=== PATIENT | female | born 1980 | race Two or more races ===

== ENCOUNTER 2016-07-15 14:16 | Emergency (ER) | payer MEDICAID, OTHER ==
[~2016-07-15] VITALS: Ht 162.6 cm; Wt 72.6 kg
[2016-07-15 14:31] VITALS: BP 120/78
[2016-07-15 15:21] LABS: DEFINITIVE VIEW TRANSMISSION; Hemoglobin 9.9 g/dL (12.2-16.2); Mean Corpuscular Hemoglobin 19.9 pg (28.0-32.0); Mean Corpuscular Volume 63.9 fL (80.0-100.0); Mean Platelet Volume 8.9 fL (7.4-10.4); Platelet Count (auto) 282 10^3/uL (140-450); Red Cell Distribution Width 20.6 % (11.6-16.0); SUSPECT VIEW TRANSMISSION; White Blood Cell 6.8 10^3/uL (4.4-10.8)
[2016-07-15 15:22] LABS: Metamyelocytes % 0; Myelocytes % 0; Promyelocytes % 0; Reactive Lymphocytes 0
[2016-07-15 15:32] LABS: Albumin 3.4 g/dL (3.4-5.0); Anion Gap 10 (5-15); Aspartate Aminotransferase 17 U/L (15-37); Blood Urea Nitrogen 7 mg/dL (7-18); Calcium 7.8 mg/dL (8.5-10.1); Carbon Dioxide 25 mmol/L (21-32); Chloride 104 mmol/L (98-107); GFR African American 180 mL/min; GFR Non-African American 148 mL/min; Glucose 96 mg/dL (74-106); Sodium 139 mmol/L (136-145)
[2016-07-15 15:35] LABS: Alkaline Phosphatase 123 U/L (45-117); Bilirubin, Total < 0.1 mg/dL (0.2-1.0); Carbamazepine (Tegretol) 5.1 ug/mL (4-12); Total Protein 8.1 g/dL (6.4-8.2)
[2016-07-15 18:20] LABS: Anisocytosis Moderate
[2016-07-15 18:21] LABS: Hypochromia Moderate; Platelet Clumps MANY
== END 2016-07-15 15:34 | disposition home or self-care (01) ==
LOC: ER 14:34
DX: G40.909 Epilepsy, unspecified, not intractable, without status epilepticus (principal)
CPT/HCPCS: 36415; 80053; 80156; 85007; 85027; 85049

== ENCOUNTER 2018-04-24 17:20 | Emergency (ER) | payer MEDICAID ==
[~2018-04-24] VITALS: Ht 152.4 cm; Wt 81.8 kg
[2018-04-24 17:35] VITALS: BP 132/66
[2018-04-24] MEDS ORDERED: SILVER SULFADIAZINE 1 % TOPICAL CREAM 50GM TOP ONE (19:45)
== END 2018-04-24 20:14 | disposition home or self-care (01) ==
LOC: ER 17:22
DX: T23.231A Burn of second degree of multiple right fingers (nail), not including thumb, initial encounter (principal); T23.221A Burn of second degree of single right finger (nail) except thumb, initial encounter; T31.0 Burns involving less than 10% of body surface; G40.909 Epilepsy, unspecified, not intractable, without status epilepticus; X15.0XXA Contact with hot stove (kitchen), initial encounter; Y93.G3 Activity, cooking and baking; Y99.8 Other external cause status; Y92.89 Other specified places as the place of occurrence of the external cause
CPT/HCPCS: 16020